=== PATIENT | male | born 1965 | race Caucasian/White ===

== ENCOUNTER → 2016-10-15 | Outpatient (CLI) | payer BC ==
[~2016-10-15] MED LIST: KRIL1000 PO
--- NOTE | 2016-10-15 10:16 | DIAGNOSTIC IMAGING REPORT ---
LEFT KNEE 4 VIEWS CLINICAL HISTORY: Left knee pain. FINDINGS: AP, crosstable lateral, tunnel, and sunrise views of the left knee are obtained. Correlation is made with AP radiograph of the knees dated 01/16/2015. The skeletal structures are well mineralized. No fracture is seen. The joint spaces of the knee are well-maintained. No evidence of osteochondral defect is identified on the tunnel view. There is a small joint effusion. The overlying soft tissues are within normal limits. IMPRESSION: Small joint effusion with no acute bony abnormality identified. Electronically signed by: Eddie Vieira M.D. 10/15/2016 10:15 AM Dictated Date/Time: 10/15/2016 10:13 AM
== END ==
LOC: C.RDSM 10:00
PROVIDERS: ATTEND Physician Assistant
DX: M25.562 Pain in left knee (principal)

== ENCOUNTER → 2016-10-25 | Outpatient (CLI) | payer BC ==
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
--- NOTE | 2016-10-25 11:17 | DIAGNOSTIC IMAGING REPORT ---
Right left knee LEFT LOWER EXT JOINT WITHOUT CLINICAL HISTORY: L KNEE INJURY trauma. Pain. TECHNIQUE: MRI multi axial acquisition COMPARISON STUDY: None FINDINGS: Generalized bone contusions of the medial as well as lateral femoral condyles. At bone contusions of the posterior medial as well as lateral tibial plateaus. Small joint effusion. Tear anterior cruciate ligament. Posterior cruciate ligament is intact. Degenerative thinning of the articular services of the medial and lateral compartments. The medial and lateral collateral ligaments are intact. Hairline tear inferior surface posterior horn medial meniscus. Menisci otherwise appear unremarkable. IMPRESSION: 1. Generalized bone contusions of all major osseous structures. 2. Small joint effusion. 3. Tear anterior cruciate ligament. 4. Hairline tear inferior surface posterior horn medial meniscus. 5. Degenerative thinning of the articular services of the medial and lateral compartments. Electronically signed by: Chandra Reed M.D. 10/25/2016 11:16 AM Dictated Date/Time: 10/25/2016 11:10 AM
== END | disposition home or self-care (01) ==
LOC: C.MRI 09:50
PROVIDERS: ATTEND Physician Assistant
DX: S89.92XA Unspecified injury of left lower leg, initial encounter (principal); X58.XXXA Exposure to other specified factors, initial encounter

== ENCOUNTER → 2017-02-22 | Day surgery (SDC) | payer BC ==
[2017-01-28 09:14] VITALS: Ht 177.8 cm; Wt 88.6 kg
[~2017-02-22] VITALS: Ht 177.8 cm; Wt 88.6 kg
[~2017-02-22] MED LIST changes: +ATROPINE SULFATE 0.1 MG/ML 5ML SYR IV PRN; +CEFAZOLIN 2000MG IV PUSH 10 ML IV SCH; +DEXAMETHASONE SOD INJ 4 MG/ML VIAL ONE; +EpHEDrine SULFATE INJ 50 MG/ML AMP IV PRN; +EpINEphrine HCL INJ 1 MG/ML 5ML SYRINGE ONE; +FENTANYL CITRATE INJ 50 MCG/1 ML 2 ML VIAL IV PRN; +FENTANYL CITRATE INJ 50 MCG/1 ML 2 ML VIAL ONE; +HYDROmorphone INJ 0.5 MG/0.5 ML SYR ONE; +HYDROmorphone INJ 1 MG/ML SYR IV PRN; +HYDROmorphone INJ 2 MG/ML SYR/VIAL IV PRN; +LABETALOL HCL IV 5 MG/ML 20ML IV PRN; +LACTATED RINGER'S 1000ML 1,000 ML IV SCH; +LEVOFLOXACIN 500 MG TAB PO SCH; +LIDOCAINE HCL 2% 2 ML VIAL (20MG/ML) ONE; +MIDAZOLAM HCL 1 MG/ML 2ML VIAL ONE; +ONDANSETRON INJ 2 MG/ML 2 ML VIAL IV PRN; +ONDANSETRON INJ 2 MG/ML 2 ML VIAL ONE; +OXYCODONE/ACETAMINOPHEN 5-325 TAB PO PRN; +PHENYLEPHRINE 100MCG/ML 5ML SYR IV PRN; +PROMETHAZINE HCL INJ 12.5 MG in SODIUM CHLORIDE 0.9% 50ML 50 ML IV PRN; +PROPOFOL IV EMULSION 10 MG/ML 20 ML VIAL IV ONE; +ROPIVACAINE 0.5% 5 MG/ML 30 ML VIAL ONE; +SODIUM CHLORIDE 0.9% 1000ML 1,000 ML IV SCH
--- NOTE | 2017-02-22 09:12 | History & Physical Bridge Note ---
H&P Re-Evaluation Bridge Note: I have examined the patient, reviewed the History & Physical and in the interval since the performance of the History & Physical I have noted the following changes of clinical significance: consent reviewed. No changes noted
--- NOTE | 2017-02-22 09:13 | Discharge Instructions ---
Discharge Instructions Date of Service Feb 22, 2017. Visit Reason for Visit: Left Knee Acl Tear, Medial Meniscus Tear Discharge Discharge Diagnosis / Problem: same Discharge Goals Goal(s): Decrease discomfort, Improve function Medications Stopped Medications Name(s): na Restart Stopped Medication(s): use scripts as directed Activity Recommendations Activity Limitations: as noted below Lifting Limitations: until after follow-up appointment Exercise/Sports Limitations: until after follow-up appointment May Resume Sexual Activity: when tolerated Shower/Bathe: keep incision dry Driving or Machine Use: resume 3 days after discharge Weightbearing Status: Left weightbearing (as tolerated) Anesthesia . Post Anesthesia Instructions: If you have had General Anesthesia or IV Sedation: * Do not drive today. * Resume driving when surgeon permits. * Do not make important decisions or sign legal documents today. * Call surgeon for: 1. Temperature elevations greater than 101 degrees F. 2. Uncontrollable pain. 3. Excessive bleeding. 4. Persistent nausea and vomiting. 5. Medication intolerance (nausea, vomiting or rash). * For nausea and vomiting use only clear liquids such as: tea, soda, bouillon until nausea subsides, then gradually increase diet as tolerated. * If you have any concerns or questions, call your surgeon's office. If physician is unavailable and it is an emergency, call 911 or go to the nearest emergency room. . Instructions / Follow-Up Instructions / Follow-Up The following instructions are a useful guide to questions you may have after your Anterior Cruciate Ligament Reconstruction surgery. If you have any questions contact the office at . ACTIVITY RECOMMENDATIONS: * Heavy manual labor is not permitted until 4-6 months after surgery. * Sports are not permitted until 6-9 months after surgery. * Return to activity is individualized. * DRIVING: Driving is not permitted until 3-4 weeks after surgery at a minimum. Please ask your doctor when it is safe to resume driving. If you have an automatic vehicle and your left leg has been operated on, then you may begin driving as soon as you are comfortable and can drive safely. * BATHING: You may shower or sponge-bathe immediately after surgery. The dressing will need to be covered with a plastic bag or plastic wrap until the dressing is changed on the fourth or fifth day after surgery. Once the dressing has been changed on the fourth or fifth day after surgery, you may shower and get the incision wet. * Wash with regular soap and water. * Do not bathe (submerge the incision), soak, swim or use a hot tub until the incision is completely healed over with normal skin and the doctor has given the OK to proceed. * There is no need to apply any ointments, powders or salves to your incision. * Do not apply alcohol or hydrogen peroxide directly to the incision. Diluted peroxide (50:50 mixture with sterile saline) may be used to clean dried blood from around the incision area. WORK/SCHOOL: * You may return to sedentary work or school when you are feeling comfortable. This is usually 3-7 days after surgery. * Expect increased discomfort with increased activity. Continue to elevate and ice the leg as much as possible. DIET: * Resume previous diet. MEDICATIONS: * You will have a prescription for pain medication and an anti-inflammatory medication after surgery. Use the pain pills for severe pain and the anti-inflammatory for less severe pain. * Once the pain pills have run out, try to use the anti-inflammatory. If this is not effective then contact the office for assistance. * The pain medication may cause nausea, constipation and sleepiness. You should see how they affect you before driving or similar activity. * The anti-inflammatory may cause stomach upset and bleeding. If this occurs, let your doctor know immediately . * Some patients may need blood clot prevention. This can be done with either a pill or a simple shot. Your doctor will advise you on when to begin these medications and how to take them. * Do not take aspirin or other anti-inflammatory products (i.e. Advil or Aleve ) if taking blood thinner medication. * Take a stool softener like Colace or a stimulant like Senokot to prevent constipation. SPECIAL CARE INSTRUCTIONS: The following instructions are a useful guide to questions you may have after your surgery. If you have any questions contact the office at . ICE: * You have the option of an ice cooler, gel packs or ice bags. * If you have an ice cooler, refer to the instructions for that device. * If you do not have an ice cooler, then you will need to use ice bags or gel packs. * Do not apply ice directly to the skin. * Use a thin dressing or stockinet between the skin and ice bag. * Apply ice for 20-30 minutes and repeat every 2-4 hours. This is especially important for the first 7-10 days after surgery. * Once the pain improves, use ice as needed. * The ice cooler can be used continuously. ELEVATION: * Keep your leg elevated at or above the level of your heart as much as possible. * Expect some increased discomfort and swelling if you are standing for any length of time. * When lying down, avoid placing anything under your knee. Rather, prop your leg up by placing several pillows under your heel or calf. DRESSING: * Your dressing will be changed at your first therapy appointment approximately 4-5 days after surgery. * Band-Aids, tape strips or gauze may be applied. You may then change your dressing daily. * Always wash your hands prior to touching the incision area. * Reapply dressing followed by the Alexey wrap or Tubi-vacuum cleaner repairer stockinet, ice cooling pad and then the brace. * Once the stitches are removed, you may leave the wound open to air or cover with an Alexey Bandage or Tubi-vacuum cleaner repairer stockinet. * If you have been given a white elastic stocking (LUKASZ hose), wear as much as possible for the first 1-3 weeks depending on swelling. * Expect some bloody drainage for the first few days after surgery. * Leave the tape strips in place for 5-7 days. * Band-Aids and gauze may be changed daily. CRUTCHES: * You will need to use crutches after surgery. * Until your first doctor's appointment, you must use your crutches at all times when walking and should put no more than 50% of your normal weight on the surgical leg. * After your first doctor's appointment, you may gradually progress to full weight bearing and discontinue crutches as tolerated under the guidance of your therapist. * If you have had a microfracture procedure done, you may be advised to be non- weight bearing for up to 6 weeks. BRACE: * After surgery, you will be placed into a range of motion brace locked with your leg straight. This brace is to be worn at all times when walking (even with the crutches) and sleeping until your first doctors appointment. * The brace may be removed for therapy. * After your first therapy appointment, your therapist will open the brace to allow bending of the knee once your muscles are working better. * Until your first doctor's appointment, you should sleep with your brace locked with your knee fully straight. * If you have chosen to use a functional ACL brace then this brace will be supplied about 2-3 months after your surgery. During that time, you will attend therapy 2- 3 times per week. You will also need to do daily exercises for range of motion and strength as instructed. PROBLEMS/QUESTIONS: * If you have any problems such as severe pain, numbness, tingling or high fevers or if you have any questions, please contact the office at [phone]. * It is not uncommon to have some numbness and tingling after the surgery especially if you have had a nerve block done. This should gradually improve over the first 1- 2 days. If this persists longer or worsens then contact the office. FOLLOW UP VISIT: * If not already scheduled, please call the office at to schedule follow-up appointments for approximately 10 days and one month after surgery followed by monthly appointments thereafter. Diet Recommendations Recommended Home Diet: resume previous diet Procedures Procedures Performed: see op note Pending Studies Studies pending at discharge: no Medical Emergencies . Who to Call and When: Medical Emergencies: If at any time you feel your situation is an emergency, please call 911 immediately. . Non-Emergent Contact Non-Emergency issues call your: Specialist Call Non-Emergent contact if: wound has increased drainage, wound has increased redness, wound has increased pain . . "Provider Documentation" section prepared by Rubio Chirinos. .
--- NOTE | 2017-02-22 11:08 | [facility] Post Operative Brief Note ---
Immediate Operative Summary Operative Date Feb 22, 2017. Pre-Operative Diagnosis Left Knee ACL Tear with Medial Meniscal Tear Post-Operative Diagnosis Same Procedure(s) Performed Left Knee Arthroscopy, Anterior Cruciate Ligament Reconstruction With Achilles Allograft, Partial Medial Meniscectomy, Exam Under Anesthesia Surgeon Dr. Chirinos Architectural Examiner Surgeon(s) Fifi Kimbrough PA-C Estimated Blood Loss 25 ml Findings acl tear/mm tear Fluids (cc crystalloids) 850cc Specimens None Drains none Anesthesia LMA/block Complication(s) None Disposition Recovery Room / PACU
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
[2017-02-22 12:15] VITALS: TEMP 36.4
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
--- NOTE | 2017-02-22 12:56 | Anesthesia Progress Nt - [facility] ---
Anesthesia Post Op Note Date & Time Feb 22, 2017 at 12:56 Vital Signs Pain Intensity: 4.0 Vital Signs Past 12 Hours Date Time Temp Pulse Resp B/P (MAP) Pulse Ox O2 Delivery O2 Flow Rate FiO2 02/22/17 12:15 36.4 76 16 154/82 (106) 95 Room Air 02/22/17 12:06 154/93 02/22/17 12:03 74 14 98 02/22/17 12:03 73 14 02/22/17 12:02 73 14 02/22/17 12:02 70 14 99 02/22/17 12:01 161/94 02/22/17 12:00 151/101 02/22/17 11:58 36.4 16 152/99 98 Room Air 02/22/17 11:57 72 13 02/22/17 11:57 72 13 98 02/22/17 11:56 152/99 02/22/17 11:52 76 21 02/22/17 11:52 74 21 154/100 98 02/22/17 11:51 148/103 02/22/17 11:47 75 20 99 02/22/17 11:47 73 20 02/22/17 11:46 149/93 02/22/17 11:45 70 11 99 02/22/17 11:45 72 11 02/22/17 11:41 158/91 02/22/17 11:40 75 18 99 02/22/17 11:40 75 18 02/22/17 11:36 150/89 02/22/17 11:35 84 14 99 02/22/17 11:35 84 14 02/22/17 11:31 147/95 02/22/17 11:30 76 12 99 02/22/17 11:30 78 12 02/22/17 11:26 159/105 02/22/17 11:25 78 10 02/22/17 11:25 79 10 98 02/22/17 11:21 156/95 02/22/17 11:20 74 12 02/22/17 11:20 73 12 98 02/22/17 11:16 163/101 02/22/17 11:15 36.3 80 12 163/101 98 Diffusion Mask 6 02/22/17 09:42 0 02/22/17 09:37 71 02/22/17 09:37 71 24 99 02/22/17 09:36 143/88 02/22/17 09:32 77 13 99 02/22/17 09:32 76 02/22/17 09:31 137/95 02/22/17 09:27 88 22 99 02/22/17 09:27 85 02/22/17 09:26 155/94 02/22/17 09:22 79 0 02/22/17 09:21 151/94 02/22/17 09:17 83 0 02/22/17 09:12 82 0 99 02/22/17 09:12 82 02/22/17 09:11 149/85 02/22/17 09:07 74 02/22/17 09:07 74 0 98 02/22/17 09:06 36.8 72 18 153/86 (108) 97 Room Air 02/22/17 09:06 153/86 02/22/17 09:02 0 Notes Mental Status: alert / awake / arousable, participated in evaluation Pt Amnestic to Procedure: Yes Nausea / Vomiting: adequately controlled Pain: adequately controlled Airway Patency, RR, SpO2: stable & adequate BP & HR: stable & adequate Hydration State: stable & adequate Anesthetic Complications: no major complications apparent
[2017-02-22 13:07] VITALS: BP 136/75; PULSE 81; O2SAT 96
== END | disposition home or self-care (01) ==
LOC: X.SURG 08:56
PROVIDERS: ATTEND Physical Medicine & Rehabilitation Sports Medicine
DX: S83.242A Other tear of medial meniscus, current injury, left knee, initial encounter (principal); S83.512A Sprain of anterior cruciate ligament of left knee, initial encounter; V29.9XXA Motorcycle rider (driver) (passenger) injured in unspecified traffic accident, initial encounter; Y93.59 Activity, other involving other sports and athletics played individually

== ENCOUNTER → 2017-03-28 | Outpatient (CLI) | payer BC ==
[~2017-03-28] MED LIST changes: -ATROPINE SULFATE 0.1 MG/ML 5ML SYR IV PRN; -CEFAZOLIN 2000MG IV PUSH 10 ML IV SCH; -DEXAMETHASONE SOD INJ 4 MG/ML VIAL ONE; -EpHEDrine SULFATE INJ 50 MG/ML AMP IV PRN; -EpINEphrine HCL INJ 1 MG/ML 5ML SYRINGE ONE; -FENTANYL CITRATE INJ 50 MCG/1 ML 2 ML VIAL IV PRN; -FENTANYL CITRATE INJ 50 MCG/1 ML 2 ML VIAL ONE; -HYDROmorphone INJ 0.5 MG/0.5 ML SYR ONE; -HYDROmorphone INJ 1 MG/ML SYR IV PRN; -HYDROmorphone INJ 2 MG/ML SYR/VIAL IV PRN; -LABETALOL HCL IV 5 MG/ML 20ML IV PRN; -LACTATED RINGER'S 1000ML 1,000 ML IV SCH; -LEVOFLOXACIN 500 MG TAB PO SCH; -LIDOCAINE HCL 2% 2 ML VIAL (20MG/ML) ONE; -MIDAZOLAM HCL 1 MG/ML 2ML VIAL ONE; -ONDANSETRON INJ 2 MG/ML 2 ML VIAL IV PRN; -ONDANSETRON INJ 2 MG/ML 2 ML VIAL ONE; -OXYCODONE/ACETAMINOPHEN 5-325 TAB PO PRN; -PHENYLEPHRINE 100MCG/ML 5ML SYR IV PRN; -PROMETHAZINE HCL INJ 12.5 MG in SODIUM CHLORIDE 0.9% 50ML 50 ML IV PRN; -PROPOFOL IV EMULSION 10 MG/ML 20 ML VIAL IV ONE; -ROPIVACAINE 0.5% 5 MG/ML 30 ML VIAL ONE; -SODIUM CHLORIDE 0.9% 1000ML 1,000 ML IV SCH
--- NOTE | 2017-03-28 09:04 | DIAGNOSTIC IMAGING REPORT ---
ULTRASOUND EXAM AAA SCREEN CLINICAL HISTORY: Family history of abdominal aortic aneurysm. COMPARISON STUDY: No previous studies for comparison. FINDINGS: The caliber of the abdominal aorta is normal. The proximal abdominal aorta measures 1.9 cm. The mid abdominal aorta measures 1.8 cm. The distal abdominal aorta measures 1.7 cm. The caliber of the proximal bilateral common iliac arteries is normal. IMPRESSION: Normal caliber abdominal aorta. Electronically signed by: Nikolas Prince M.D. 03/28/2017 9:03 AM Dictated Date/Time: 03/28/2017 9:02 AM
== END | disposition home or self-care (01) ==
LOC: C.ULTR 08:42
DX: Z82.49 Family history of ischemic heart disease and other diseases of the circulatory system (principal)

== ENCOUNTER → 2017-04-04 | Outpatient (CLI) | payer BC | END | disposition home or self-care (01) | LOC: C.RDSM 13:23 | PROVIDERS: ATTEND Physical Medicine & Rehabilitation Sports Medicine | DX: S83.512D Sprain of anterior cruciate ligament of left knee, subsequent encounter (principal); X58.XXXD Exposure to other specified factors, subsequent encounter; M25.869 Other specified joint disorders, unspecified knee ==